=== PATIENT | female | born 1950 | race Caucasian/White ===

== ENCOUNTER → 2022-03-05 14:53 | Outpatient (BNVA) | payer MEDICARE, OTHER, SELFPAY | PROVIDERS: Family Provider Electrodiagnostic Medicine; Visit Provider Clinical Nurse Specialist Adult Health | DX: Z20.822 Contact with and (suspected) exposure to COVID-19 (principal); J06.9 Acute upper respiratory infection, unspecified | CPT/HCPCS: 87426 ==

== ENCOUNTER → 2023-02-21 12:45 | Outpatient (BNVA) | payer MEDICARE, OTHER, SELFPAY | PROVIDERS: Family Provider Electrodiagnostic Medicine; PCP Family Medicine; Visit Provider Family Medicine | DX: I10 Essential (primary) hypertension (principal); F32.A Depression, unspecified; Z13.6 Encounter for screening for cardiovascular disorders | CPT/HCPCS: 80053; 80061 ==

== ENCOUNTER → 2024-01-30 12:09 | Outpatient (BNVA) | payer MEDICARE, SELFPAY | PROVIDERS: Family Provider Electrodiagnostic Medicine; PCP Clinical Nurse Specialist Adult Health; Visit Provider Clinical Nurse Specialist Adult Health | DX: I10 Essential (primary) hypertension (principal); E55.9 Vitamin D deficiency, unspecified | CPT/HCPCS: 80053; 80061; 82306; 85025 ==

== ENCOUNTER → 2024-08-27 13:00 | Outpatient (BNVA) | payer MEDICARE, SELFPAY | PROVIDERS: Family Provider Electrodiagnostic Medicine; PCP Clinical Nurse Specialist Adult Health; Visit Provider Family Medicine | DX: R32 Unspecified urinary incontinence (principal); R53.81 Other malaise; R53.83 Other fatigue; E78.5 Hyperlipidemia, unspecified; Z13.220 Encounter for screening for lipoid disorders; E11.9 Type 2 diabetes mellitus without complications; Z51.81 Encounter for therapeutic drug level monitoring; E55.9 Vitamin D deficiency, unspecified | CPT/HCPCS: 80053; 80061; 82306; 83036; 84443; 85025 ==

== ENCOUNTER → 2025-01-12 15:35 | Outpatient (BNVA) | payer MEDICARE, OTHER, SELFPAY | PROVIDERS: Family Provider Electrodiagnostic Medicine; PCP Family Medicine; Visit Provider Family Medicine | DX: I10 Essential (primary) hypertension (principal); Z51.81 Encounter for therapeutic drug level monitoring; E11.9 Type 2 diabetes mellitus without complications; E55.9 Vitamin D deficiency, unspecified; R62.7 Adult failure to thrive; R05.9 Cough, unspecified; R63.4 Abnormal weight loss; R10.9 Unspecified abdominal pain; F32.A Depression, unspecified; F03.90 Unspecified dementia, unspecified severity, without behavioral disturbance, psychotic disturbance, mood disturbance, and anxiety | CPT/HCPCS: 80053; 82306; 83036; 83735; 85025 ==

== ENCOUNTER → 2025-05-28 12:01 | Outpatient (BNVA) | payer MEDICARE, OTHER, SELFPAY | PROVIDERS: Family Provider Electrodiagnostic Medicine; PCP Family Medicine; Visit Provider Family Medicine | DX: E11.9 Type 2 diabetes mellitus without complications (principal); Z51.81 Encounter for therapeutic drug level monitoring; E55.9 Vitamin D deficiency, unspecified | CPT/HCPCS: 80053; 82306; 83036; 85025 ==

== ENCOUNTER 2025-09-05 14:04 | Observation (INO) | payer MEDICARE, OTHER, SELFPAY ==
[2025-09-05] VITALS (33 sets, daily range): BP systolic 153–207; BP diastolic 73–100; PULSE 75–84; RESP 16; TEMP 37.3; O2SAT 90–98
--- OUTSIDE RECORDS SUMMARY | 2025-09-05 14:13 | XMS_ITS | Continuity of Care Document ---
Author Organization [place] - [facility], [place], [facility]) Address [address] [place] [address] Assessment Encounter Date Assessment Date Assessment LastModified by Organization Details LastModified Time 09/05/2025 09/05/2025 PT is going to ER for further evaluation [email or web address] Not available 09/05/2025 14:57:30 Plan of Treatment Reminders Order Date Submit Date Provider Last Modified By Organization Details Last Modified Time Details Appointments None record ed. Lab None record ed. Referral None record ed. Procedures None record ed. Surgeries None record ed. Imaging None record ed. Medication Orders None record ed. Patient TargetsNo targets recorded. Patient InstructionsNo instructions recorded. Reason for Referral None Reported. Medical Equipment None Reported. Allergies Allergen ID Allergen Name Allergen Category Reaction Reaction Severity Criticality Documentation Date Start Date Code Code System Note Provider Name and Address Organization Details Recorded Time 49638 sertralin e medicatio n Not available Not available Not available 09/05/20252023 37456 RxNorm Not Available alice - External Data Service - prod 14:50:48 Medications Name Sig Start Date Stop Date Status Note LastModified by Organization Details LastModified Time atorvastat in 40 mg tablet TAKE 1 TABLET BY MOUTH EVERY DAY IN THE MORNING FOR CHOLESTE ROL. active Not Available Not Available No t Available metoprolol succinate ER 100 mg tablet,ext ended release 24 hr TAKE 1 TABLET BY MOUTH DAILY FOR HEART RATE & BLOOD PRESSURE . active Not Available Not Available No t Available lisinopril 40 mg tablet TAKE 1 TABLET BY MOUTH EVERY DAY active Not Available Not Available No t Available lisinopril daily 2021 active DM/sd; Recorded 07/29/2022 3:35PM by Thuy Rowland, Historical Summary; Refill Quantity: 0; Not Available Not Available Not Available metoprolol succinate daily 2022 active DM/sd Pt. must have appt. prior to additional refills; Recorded 09/13/2022 10:25AM by Thuy Rowland, Historical Summary; Refill Quantity: 0; Not Available Not Available Not Available amlodipine besylate (bulk) daily 2021 active DM/MG; 69835; Recorded 12/27/2021 11:51AM by Brielle Cohen (Authorize d through Robby Tracey DO), Annotation /Addendum; Refill Quantity: 0; Not Available Not Available Not Available Vitals None Recorded Social History None recorded. Functional Status None recorded. Mental Status None recorded. Family History Nothing Reported. Medical History No medical history recorded. Gynecological HistoryNo gynecological history recorded. Obstetrics History GPAL:G 0 P 0 0 0 0 Immunizations Vaccine Type Date Status Note Provider Nam e and Address Organization Details Recorded Time Pneumococcal conjugate PCV 13 6 completed Not Available [facility] 09/05/2025 14:50:19 Past Encounters Encounter ID Performer Location Encounter Start Date Encounter Closed Date Diagnosis/Indication Diagnosis SNOMED-CT Code Diagnosis ICD10 Code Diagnosis IMO Codes Diagnosis Note [id number] JULIANNA SAMS APRN [facility] ([facility]) [address] [place] [phone] 09/05/2025 14:50:03 09/05/2025 14:58:13 Health Concerns Section Related Observation LastModified by Organization Detai ls LastModified Time None Recorded Concern Status LastModified by Organization Details LastModified Time None Recorded Payers Encounter Date Sequence Insurance Name Policy Number Policy [place] Covered Member ID [place] Member ID Guarantor Name 09/05/2025 1 [employer]ger [id number] Su Unger OBGyn Episode No OBEpisode recorded.
--- OUTSIDE RECORDS SUMMARY | 2025-09-05 14:13 | XMS_ITS | Data Portability ---
Author Organization [facility] Address [address] [phone] Assessment Encounter Date Assessment Date Assessment LastModified by Organization Details LastModified Time 09/05/2025 09/05/2025 PT is going to ER for further evaluation [email or web address] Not available 09/05/2025 14:57:30 Plan of Treatment [...] Name and Address Organization Details Recorded Time 65112 sertralin e medicatio n Not available Not available Not available 09/05/20252023 64681 RxNorm Not Available alice - External Data [...] amlodipine besylate (bulk) daily 2021 active DM/MG; 95331; Recorded 12/27/2021 11:51AM by Brielle Cohen (Authorize [...] conjugate PCV 13 6 completed Not Available [facility] 09/05/2025 14:50:19 Past Encounters Encounter ID Performer Location Encounter Start Date Encounter Closed Date Diagnosis/Indication Diagnosis SNOMED-CT Code Diagnosis ICD10 Code Diagnosis IMO Codes Diagnosis Note [id number] JULIANNA SAMS APRN [facility] ([facility]) [address] [place] [phone] 09/05/2025 14:50:03 09/05/2025 14:58:13 Health Concerns Section Related Observation LastModified by Organization Detai ls LastModified Time None Recorded Concern Status LastModified by Organization Details LastModified Time None Recorded Advance Directives Directive None Recorded Payers Insurance Date Sequence Insurance Name Policy Number Policy [place] Covered Member ID [place] Member ID Guarantor Name 09/05/2025 1 [employer] [id number] Su Unger OBGyn Episode No OBEpisode recorded.
--- NOTE | 2025-09-05 15:10 | XRR_ITS ---
PROCEDURE INFORMATION: Exam: XR Chest Exam date and time: 09/05/2025 3:48 PM Age: 75 years old Clinical indication: Injury or trauma; Fall; Blunt trauma (contusions or hematomas) TECHNIQUE: Imaging protocol: Radiologic exam of the chest. 2 image(s) are submitted. Views: 1 view. COMPARISON: CT cervical spin wo con* [id number] 09/05/2025 3:33 PM FINDINGS: Lungs: Unremarkable. No consolidation. Pleural spaces: Unremarkable. No pleural effusion. No pneumothorax. Heart/Mediastinum: Unremarkable. No cardiomegaly. Bones/joints: Unremarkable. Other findings: None XR/XR chest 1V portable [id number] IMPRESSION: No acute findings.
--- NOTE | 2025-09-05 15:10 | XRR_ITS ---
PROCEDURE INFORMATION: Exam: XR Right Elbow Exam date and time: 09/05/2025 3:48 PM Age: 75 years old Clinical indication: Injury or trauma; Fall; Blunt trauma (contusions or hematomas); Elbow; Right; Additional info: Fall/injury/edema TECHNIQUE: Imaging protocol: Radiologic exam of the right elbow. 1 image(s) are submitted. Views: 3 or more views. COMPARISON: CR (UP EX, ) 09/05/2025 3:48 PM FINDINGS: Bones/joints: See Soft tissues finding. Soft tissues: Significant soft tissue swelling surrounding the right elbow region. Indistinct fracture line in the intercondylar region is noted, consistent with supracondylar fracture with up to 14 mm bony displacement, best seen on lateral x-ray. Follow-up CT study is recommended for accurate evaluation. Large elbow joint effusion. Osteopenia. XR/XR elbow RT min 3V* [id number] IMPRESSION: Significant soft tissue swelling surrounding the right elbow region. Indistinct fracture line in the intercondylar region is noted, consistent with supracondylar fracture with up to 14 mm bony displacement, best seen on lateral x-ray. Follow-up CT study is recommended for accurate evaluation. Large elbow joint effusion. Osteopenia.
--- NOTE | 2025-09-05 15:10 | CTR_ITS ---
PROCEDURE INFORMATION: Exam: CT Cervical Spine Without Contrast Exam date and time: 09/05/2025 3:33 PM Age: 75 years old Clinical indication: Injury or trauma; Fall; Blunt trauma TECHNIQUE: Imaging protocol: Computed tomography of the cervical spine without contrast. Radiation optimization: All CT scans at this facility use at least one of these dose optimization techniques: automated exposure control; mA and/or kV adjustment per patient size (includes targeted exams where dose is matched to clinical indication); or iterative reconstruction. COMPARISON: CT head wo con* [id number] 09/05/2025 3:33 PM RADIATION DOSE METRICS: Total DLP (mGy-cm): 104.6 FINDINGS: Bones: No cervical fracture or facet subluxation. Mastoid air cells: Small fluid in bilateral mastoid air cells. Lungs: Lung apices are normal. Soft tissues: Unremarkable. CT/CT cervical spin wo con* [id number] IMPRESSION: No fracture.
--- NOTE | 2025-09-05 15:10 | XRR_ITS ---
PROCEDURE INFORMATION: Exam: XR Right Forearm Exam date and time: 09/05/2025 3:48 PM Age: 75 years old Clinical indication: Injury or trauma; Fall; Blunt trauma (contusions or hematomas); Arm, lower; Right; Additional info: Fall/injury TECHNIQUE: Imaging protocol: Radiologic exam of the right forearm. 3 image(s) are submitted. Views: 2 views. COMPARISON: CR (UP EXM, ) 09/05/2025 3:48 PM FINDINGS: Bones/joints: Transverse supracondylar fracture of the right humerus with extensive adjacent soft tissue swelling and some degree of bony impaction is noted. Osteopenia. The radius and ulnar are unremarkable. Soft tissues: See Bones/joints finding. XR/XR forearm RT 2V [id number] IMPRESSION: Transverse supracondylar fracture of the right humerus with extensive adjacent soft tissue swelling and some degree of bony impaction is noted. Osteopenia. The radius and ulnar are unremarkable.
--- NOTE | 2025-09-05 15:10 | CTR_ITS ---
PROCEDURE INFORMATION: Exam: CT Head Without Contrast Exam date and time: 09/05/2025 3:33 PM Age: 75 years old Clinical indication: Injury or trauma; Fall; Blunt trauma (contusions or hematomas) TECHNIQUE: Imaging protocol: Computed tomography of the head without contrast. Radiation optimization: All CT scans at this facility use at least one of these dose optimization techniques: automated exposure control; mA and/or kV adjustment per patient size (includes targeted exams where dose is matched to clinical indication); or iterative reconstruction. COMPARISON: CT cervical spin wo con* [id number] 09/05/2025 3:33 PM RADIATION DOSE METRICS: Total DLP (mGy-cm): 1057.4 FINDINGS: Brain: Cortical atrophy is present. Indeterminate 3 mm hyperdensity at the right centrum semiovale. No midline shift. Periventricular hypodensities are nonspecific and likely representing moderate small vessel ischemic changes. Cerebral ventricles: No ventriculomegaly. Paranasal sinuses: Visualized sinuses are unremarkable. No fluid levels. Mastoid air cells: Visualized mastoid air cells are well aerated. Bones: Unremarkable. No acute fracture. Soft tissues: Unremarkable. Other findings: Intracranial atherosclerotic changes. CT/CT head wo con* [id number] IMPRESSION: 1. Indeterminate 3 mm hyperdensity at the right centrum semiovale. This could represent a small calcification versus small intraparenchymal hematoma given the history of trauma. Short-term imaging follow-up for stability is advised. 2. Cortical atrophy is present. 3. Likely moderate small-vessel ischemic changes. 4. Intracranial atherosclerotic changes.
--- NOTE | 2025-09-05 15:11 | ED_ITS ---
Documented by User: YOU Cm 09/05/25 18:00 HPI - Fall 2 General: Chief Complaint: ER Hold Stated Complaint: fell, elbow area right arm, chin gash Time Seen by Provider: 09/05/25 14:54 Source: patient and family Mode of arrival: ambulatory Limitations: no limitations History of Present Illness: Patient is a 75-year-old female presents to ED today along with family for evaluation following a fall. Family states she has dementia and does have family that lives with her but they do not stay with her 01/04. They reported at breakfast/morning she seemed normal but when they returned later for lunch, it was obvious she had fallen. She is missing a portion of her artificial front tooth. She has a chin abrasion/laceration. She complained of pain to the right elbow and there was obvious swelling here. Patient does not remember following secondary to her dementia. Her only complaint to me is her right elbow. She is not on anticoagulation. Unknown whether she struck her head. MD complaint: fall Onset (ago): hour(s) Fall witnessed: no Place fall occurred: home Loss of consciousness: Unsure Prolonged down time: unclear Symptoms prior to fall: other (unknown) Location of injury: face and mouth Location of injury - extremities: Right: elbow Associated symptoms-after fall: Reports no associated symptoms; Denies abdominal pain, chest pain, difficulty walking, headache(s), hematuria, lightheadedness or neck pain Related Data Previous Rx's ?Medication ?Instructions ?Recorded loratadine 10 mg tablet 10 mg PO DAILY 07/11/22 allergies/congestion #30 tabs clotrimazole 1 % topical cream 1 applic topical BID #3 0 grams 08/27/24 (Athlete's Foot (clotrimazole)) amlodipine 10 mg tablet See Rx Instructions .Route 0 01/12/25 .COMPLEX #90 tabs citalopram 20 mg tablet 20 mg PO DAILY #90 tabs 05/0 03/03 donepezil 10 mg tablet 10 mg PO DAILY #90 tabs 05/0 03/03 lisinopril 10 mg tablet 10 mg PO DAILY #90 tabs 05/0 25 fluticasone propionate 50 1 spray intranasal BID #30 m L 03/30/25 mcg/actuation nasal spray,suspension (Allergy Relief (fluticasone)) quetiapine 25 mg tablet 25 mg PO DAILY #30 tabs 08/09 01/31 Allergies Allergy/AdvReac Type Severity Reaction Status Date / Time sertraline (From Zoloft) Allergy Unknown Unknown Verified 09/05/25 14:24 Review of Systems 2 Eyes: Denies: change in vision, blurry vision, photophobia, eye discharge, floaters or seeing flashes ENMT: Denies: throat pain, odynophagia, ear or mastoid pain, ear discharge, nasal discharge, epistaxis or sinus pain Card: Denies: chest pain, palpitations, lightheadedness, syncope or pre- syncope Resp: Denies: dyspnea or pain on inspiration GI: Denies: abdominal pain : Denies: flank pain or hematuria Musc: Reports: joint pain (R elbow) and joint swelling (R elbow); Denies: neck pain, back pain or extremity pain Neuro: Reports: other (chronic dementia-at baseline per family); Denies: headache(s), numbness in extremities, weakness in extremities, sensory changes, difficulty walking or dizziness PFSH ED 2 PFSH: Medical History Hyponatremia 2015 hospitalized for hyponatremia Chronic kidney disease Tobacco dependence due to cigarettes Generalized anxiety disorder Seasonal allergies Allergies Hypertension Depression Surgical History Hx of inguinal hernia repair 04/2016 due to incarceration Family History Other Alcohol dependence CAD (coronary artery disease) Cirrhosis Diabetes Lung cancer Pulmonary embolism Denies family history of Clotting disorder Anesthesia complication Bleeding disorder Stroke Social History Smoking and tobacco/nicotine status: never used tobacco/nicotine Alcohol intake: current Alcohol intake frequency: holidays/special occasions only Substance/Drug Use: never Lives independently: Yes Household members: none Marital status: / Current occupational status: retired Pets and animals: Yes Pets & animals: dog(s) Physical Exam 2 Const: COMMON NORMALS: no acute distress, average body habitus, patient oriented x3, healthy appearing, alert and well nourished GENERAL APPEARANCE: cooperative OTHER: baseline dementia HENMT: COMMON NORMALS: normocephalic, atraumatic and Normal external nose present HEAD & SCALP: normocephalic and atraumatic FACE & SINUS: other (mild chin abrasion) NOSE: Normal external nose present MOUTH: Normal oral and palatal mucosa present, lip normal, tongue normal and Normal salivary glands and ducts present TEETH & GINGIVA: Yes other (chipped R front tooth- artificial tooth/bridge) THROAT: posterior oropharynx normal and tonsils normal Eye: GENERAL EYE: appearance normal, both eyes and all related structures Neck/C-Spine: COMMON NORMALS: full ROM, no lymphadenopathy, supple and no meningeal signs CERVICAL SPINE: No Cervical spine tenderness and No Paracervical muscle tenderness Chest: COMMONS NORMALS: normal inspection of the chest and normal palpation of entire chest wall Resp: COMMON NORMALS: normal respiratory effort and clear to auscultation bilaterally AUSCULTATION: clear to auscultation bilaterally Cardio: COMMON NORMALS: regular rate and regular rhythm RATE: regular rate RHYTHM: regular rhythm GI: COMMON NORMALS: Normal to inspection, nondistended, normoactive bowel sounds present, Soft to palpation, non-tender, No hepatosplenomegaly present and no masses PALPATION: Yes Soft to palpation and Yes No hepatosplenomegaly present : COMMON NORMALS: Yes no CVA tenderness BLADDER/KIDNEY EXAM: Yes no CVA tenderness Back/Pelvis: COMMON NORMALS: no CVA tenderness and thoracic and lumbar spine normal to inspection Extremity: GENERAL: Yes normal exam except as noted RIGHT UPPER EXTREMITY: Yes elbow joint (severe pain/edema to R elbow) Right elbow: Yes ROM (limited due to pain) and Yes neurovascular exam (normal) Neuro: COMMON NORMALS: patient oriented x3, moves all extremities, no focal motor deficits, no sensory deficits noted and gait normal S ENSORIUM/ORIENTATION: Yes alert MENINGEAL SIGNS: Yes no meningeal signs Skin: COMMON NORMALS: no rashes or lesions noted GENERAL SKIN EXAM: no rashes or lesions noted TRAUMA: abrasion (chin) Course 2 Consultations: Consultation #1: Dr. Castaneda-reviewed elbow XR films-recommending posterior elbow splint and will follow up in office Consultation #2: Dr. Flores-[facility] neurosurgery-recommending either admit here or transfer-plan would be to repeat scan in 8 hours-if no change she can be discharged Consultation #3: Dr. Greco-accepts admission obs Vital Signs: Vital signs: Vital Signs Temperature 97.6 F 09/06/25 02:22 Pulse Rate 61 09/06/25 02:22 Respiratory Rate 16 09/06/25 02:22 Blood Pressure 179/81 09/06/25 02:22 Pulse Oximetry 95 09/06/25 02:22 Oxygen Delivery Me thod Room Air 09/06/25 02:22 MDM - Fall Medical Decision Making Patient 75-year-old female here with dementia following a fall that occurred at some point this morning. Patient does not recall the fall. Her only complaint upon arrival was right elbow pain. She does have a supracondylar elbow fracture. This was discussed with Dr. Castaneda who reviewed films. Plan will be for a posterior elbow splint and he will follow-up in office. CT head/cervical spine were obtained and on her head CT the radiologist had commented on an indeterminate 3 mm hyperdensity at her right centrum semiovale that could represent calcification versus a small intraparenchymal hematoma given her history of trauma. This was discussed with Dr. Flores, neurosurgery through [facility]. He did not feel this would amount to much but did recommend repeat CT scan in 8 hours. Patient will be admitted to obs here with plan to repeat scan. Patient's blood work overall is unremarkable. Mild hypokalemia at 3.0. Her magnesium is normal. UA does look suspicious for infection. She was given IV Rocephin. Case discussed with Dr. tOt who agrees with care plan here in the emergency department. Medical Records I reviewed the patient's medical records. Lab Data I reviewed the patient's lab results. 09/06/25 04:42 09/06/25 04:42 Radiology Impressions Cervical Spine CT 09/05/25 15:10 IMPRESSION: No fracture. Chest X-Ray 09/05/25 15:10 IMPRESSION: No acute findings. Elbow X-Ray 09/05/25 15:10 IMPRESSION: Significant soft tissue swelling surrounding the right elbow region. Indistinct fracture line in the intercondylar region is noted, consistent with supracondylar fracture with up to 14 mm bony displacement, best seen on lateral x-ray. Follow-up CT study is recommended for accurate evaluation. Large elbow joint effusion. Osteopenia. Forearm X-Ray 09/05/25 15:10 IMPRESSION: Transverse supracondylar fracture of the right humerus with extensive adjacent soft tissue swelling and some degree of bony impaction is noted. Osteopenia. The radius and ulnar are unremarkable. Head CT 09/05/25 15:10 IMPRESSION: 1. Indeterminate 3 mm hyperdensity at the right centrum semiovale. This could represent a small calcification versus small intraparenchymal hematoma given the history of trauma. Short-term imaging follow-up for stability is advised. 2. Cortical atrophy is present. 3. Likely moderate small-vessel ischemic changes. 4. Intracranial atherosclerotic changes. ADDENDUM: 09/05/25 1637 COMMENT: THIS REPORT CONTAINS FINDINGS THAT MAY BE CRITICAL TO PATIENT CARE. The exam findings were verbally communicated by me to RAAD MYERS via telephone conference at 4:35 PM COUNTERINTELLIGENCE SPECIALIST on 09/05/2025. The findings were acknowledged and understood. Elbow CT 09/05/25 17:18 IMPRESSION: Supracondylar oblique transverse fracture is noted with at least 3 small, 1 x 4 mm bone chips/fragments within the fracture line/joint space seen on image number 19 series number 8 and image number 30/8. There is 7 mm bony impaction in the radial aspect of the fracture line. There is up to 1.3 cm bony displacement in the ulnar aspect of the fracture line with the distal fragment displaced anteriorly seen on image number 13/8. There is extensive elbow joint effusion and extensive soft tissue edema/swelling of the adjacent muscle and subcutaneous soft tissue. Laboratory Results WBC 13.19 10^3/uL (3.29-11.43) H 09/05/25 16:05 RBC 3.92 10^6/uL (3.85-5.65) 09/05/25 16:05 Hgb 12.20 g/dL (11.27-16.99) 09/05/25 16:05 Hct 38.0 % (36-47) 09/05/25 16:05 MCV 96.9 fl (85-98) 09/05/25 16:05 MCH 31.1 pg (27-33) 09/05/25 16:05 MCHC 32.1 g/dL (30-55) 09/05/25 16:05 RDW 13.6 % (12.1-15.1) 09/05/25 16:05 Plt Count 237 10^3/cmm (157-399) 09/05/25 16:05 MPV 10.2 fL (7.4-10.4) 09/05/25 16:05 Neut % (Auto) 78.0 % 09/05/25 16:05 Lymph % (Auto) 15.5 % 09/05/25 16:05 Moca % (Auto) 5.8 % 09/05/25 16:05 Eos % (Auto) 0.2 % 09/05/25 16:05 Baso % (Auto) 0.2 % 09/05/25 16:05 Neut # (Auto) 10.27 10^3/uL (1.8-7.7) H 09/05/25 16:05 Lymph # (Auto) 2.1 10^3/uL (0.8-4.8) 09/05/25 16:05 Moca # (Auto) 0.8 10^3/uL (0.2-0.9) 09/05/25 16:05 Eos # (Auto) 0.0 10^3/uL (0.0-0.8) 09/05/25 16:05 Baso # (Auto) 0.0 10^3/uL (0.0-0.1) 09/05/25 16:05 Nucleated RBC % (auto) 0 % 09/05/25 16:05 Nucleated RBCs # 0.0 /100WBC 09/05/25 16:05 Sodium 136 mmol/L (136-145) 09/05/25 16:05 Potassium 3.0 mmol/L (3.5-5.1) L 09/05/25 16:05 Chloride 99 mmol/L (98-107) 09/05/25 16:05 Carbon Dioxide 24 mmol/L (22-29) 09/05/25 16:05 Anion Gap 16.0 (5-19) 09/05/25 16:05 BUN 9 mg/dL (8-23) 09/05/25 16:05 Creatinine 1.2 mg/dL (0.5-0.9) H 09/05/25 16:05 GFR Calculation Not Reportable 09/05/25 16:05 Glucose 129 mg/dL (65-115) H 09/05/25 16:05 Calculated Osmolality 282 mOsm/kg (285-295) L 09/05/25 16:05 Calcium 9.0 mg/dL (8.5-10.5) 09/05/25 16:05 Magnesium 1.7 mg/dL (1.7-2.3) 09/05/25 16:05 Total Bilirubin 0.2 mg/dL (0.15-1.2) 09/05/25 16:05 AST 15 U/L (0-32) 09/05/25 16:05 ALT 11 U/L (0-33) 09/05/25 16:05 Alkaline Phosphatase 103 U/L (35-105) 09/05/25 16:05 Troponin T Baseline 19 ng/L (0-10) H 09/05/25 16:05 Troponin T 60 Minute 17.10 ng/L (0-10) H 09/05/25 17:23 Delta Troponin T -1.90 ABS# (0-10) L 09/05/25 17:23 Total Protein 5.8 g/dL (6.6-8.7) L 09/05/25 16:05 Albumin 3.5 g/dL (3.5-5.2) 09/05/25 16:05 Globulin 2.3 g/dL (1.3-4.6) 09/05/25 16:05 Urine Color Yellow (Yellow) 09/05/25 17:01 Urine Appearance Turbid (CLEAR) A 09/05/25 17:01 Urine pH 6.0 (5-7) 09/05/25 17:01 Ur Specific Wolcott 1.010 (1.005-1.030) 09/05/25 17:01 Urine Protein 2+ (Negative) A 09/05/25 17: Urine Glucose (UA) Negative (Normal) 09/05/25 17:01 Urine Ketones Negative (Negative) 09/05/25 17: Urine Blood 2+ (Negative) A 09/05/25 17: Urine Nitrate Negative (Negative) 09/05/25 17: Urine Bilirubin Negative (Negative) 09/05/25 17: Urine Urobilinogen 0.2 mg/dL (Negative) 09/05/25 17:01 Ur Leukocyte Esterase 3+ (Negative) A 09/05/25 17:01 Urine RBC 0-2 /hpf (0-2) 09/05/25 17:01 Urine WBC >100 /hpf (0-5) H 09/05/25 17:01 Ur Squamous Epith Cells 0-5 /hpf (0-5) 09/05/25 17:01 Amorphous Sediment Not Reportable 09/05/25 17:01 Urine Bacteria 4+ /hpf (NONE) H 09/05/25 17:01 Hyaline Casts 9.30 /lpf 09/05/25 17:01 All radiology interpretation(s) finalized by discharge Discharge Plan Discharge Patient Disposition: Placed in Observation Admit Provider: Kishore Greco Clinical Impression: Acute hypokalemia, Acute UTI Fall Qualifiers: Encounter type: initial encounter Qualified Code(s): W19.XXXA - Unspecified fall, initial encounter Closed supracondylar fracture of right elbow Qualifiers: Encounter type: initial encounter Qualified Code(s): S42.411A - Displaced simple supracondylar fracture without intercondylar fracture of right humerus, initial encounter for closed fracture Intraparenchymal hematoma of brain due to trauma Qualifiers: Encounter type: initial encounter Laterality: unspecified laterality Loss of consciousness presence/duration: unknown LOC status Qualified Code(s): S06.33AA - Contusion and laceration of cerebrum, unspecified, with loss of consciousness status unknown, initial encounter Coding Level of Care Code ED Pcat Instructor for Chg Fwd Documented by User: Laura Ott MD 09/06/25 06:08 HPI - Fall 2 General: Chief Complaint: ER Hold Stated Complaint: fell, elbow area right arm, chin gash Time Seen by Provider: 09/05/25 14:54 Related Data Previous Rx's ?Medication ?Instructions ?Recorded loratadine 10 mg tablet 10 mg PO DAILY 07/11/22 allergies/congestion #30 tabs clotrimazole 1 % topical cream 1 applic topical BID #3 0 grams 08/27/24 (Athlete's Foot (clotrimazole)) amlodipine 10 mg tablet See Rx Instructions .Route 0 01/12/25 .COMPLEX #90 tabs citalopram 20 mg tablet 20 mg PO DAILY #90 tabs 05/0 03/03 donepezil 10 mg tablet 10 mg PO DAILY #90 tabs 05/0 25 lisinopril 10 mg tablet 10 mg PO DAILY #90 tabs 050 03/03 fluticasone propionate 50 1 spray intranasal BID #30 m L 03/30/25 mcg/actuation nasal spray,suspension (Allergy Relief (fluticasone)) quetiapine 25 mg tablet 25 mg PO DAILY #30 tabs 08/09 01/31 Allergies Allergy/AdvReac Type Severity Reaction Status Date / Time sertraline (From Zoloft) Allergy Unknown Unknown Verified 09/05/25 14:24 PFSH ED 2 PFSH: Medical History Hyponatremia 2015 hospitalized for hyponatremia Chronic kidney disease Tobacco dependence due to cigarettes Generalized anxiety disorder Seasonal allergies Allergies Hypertension Depression Surgical History Hx of inguinal hernia repair 04/2016 due to incarceration Family History Other Alcohol dependence CAD (coronary artery disease) Cirrhosis Diabetes Lung cancer Pulmonary embolism Denies family history of Clotting disorder Anesthesia complication Bleeding disorder Stroke Social History Smoking and tobacco/nicotine status: never used tobacco/nicotine Alcohol intake: current Alcohol intake frequency: holidays/special occasions only Substance/Drug Use: never Lives independently: Yes Household members: none Marital status: / Current occupational status: retired Pets and animals: Yes Pets & animals: dog(s) Course 2 Vital Signs: Vital signs: Vital Signs Temperature 97.6 F 09/06/25 02:22 Pulse Rate 61 09/06/25 02:22 Respiratory Rate 16 09/06/25 02:22 Blood Pressure 179/81 09/06/25 02:22 Pulse Oximetry 95 09/06/25 02:22 Oxygen Delivery Me thod Room Air 09/06/25 02:22 MDM - Fall Medical Decision Making Patient 75-year-old female here with dementia following a fall that occurred at some point this morning. Patient does not recall the fall. Her only complaint upon arrival was right elbow pain. She does have a supracondylar elbow fracture. This was discussed with Dr. Castaneda who reviewed films. Plan will be for a posterior elbow splint and he will follow-up in office. CT head/cervical spine were obtained and on her head CT the radiologist had commented on an indeterminate 3 mm hyperdensity at her right centrum semiovale that could represent calcification versus a small intraparenchymal hematoma given her history of trauma. This was discussed with Dr. Flores, neurosurgery through [facility]. He did not feel this would amount to much but did recommend repeat CT scan in 8 hours. Patient will be admitted to obs here with plan to repeat scan. Patient's blood work overall is unremarkable. Mild hypokalemia at 3.0. Her magnesium is normal. UA does look suspicious for infection. She was given IV Rocephin. Case discussed with Dr. Ott who agrees with care plan here in the emergency department. Saw patient above midlevel did review films and labs as well with her we will admit at this time Lab Data 09/06/25 04:42 09/06/25 04:42 Radiology Impressions Cervical Spine CT 09/05/25 15:10 IMPRESSION: No fracture. Chest X-Ray 09/05/25 15:10 IMPRESSION: No acute findings. Elbow X-Ray 09/05/25 15:10 IMPRESSION: Significant soft tissue swelling surrounding the right elbow region. Indistinct fracture line in the intercondylar region is noted, consistent with supracondylar fracture with up to 14 mm bony displacement, best seen on lateral x-ray. Follow-up CT study is recommended for accurate evaluation. Large elbow joint effusion. Osteopenia. Forearm X-Ray 09/05/25 15:10 IMPRESSION: Transverse supracondylar fracture of the right humerus with extensive adjacent soft tissue swelling and some degree of bony impaction is noted. Osteopenia. The radius and ulnar are unremarkable. Head CT 09/05/25 15:10 IMPRESSION: 1. Indeterminate 3 mm hyperdensity at the right centrum semiovale. This could represent a small calcification versus small intraparenchymal hematoma given the history of trauma. Short-term imaging follow-up for stability is advised. 2. Cortical atrophy is present. 3. Likely moderate small-vessel ischemic changes. 4. Intracranial atherosclerotic changes. ADDENDUM: 09/05/25 3947 COMMENT: THIS REPORT CONTAINS FINDINGS THAT MAY BE CRITICAL TO PATIENT CARE. The exam findings were verbally communicated by me to RAAD MYERS via telephone conference at 4:35 PM COUNTERINTELLIGENCE SPECIALIST on 09/05/2025. The findings were acknowledged and understood. Elbow CT 09/05/25 17:18 IMPRESSION: Supracondylar oblique transverse fracture is noted with at least 3 small, 1 x 4 mm bone chips/fragments within the fracture line/joint space seen on image number 19 series number 8 and image number 30/8. There is 7 mm bony impaction in the radial aspect of the fracture line. There is up to 1.3 cm bony displacement in the ulnar aspect of the fracture line with the distal fragment displaced anteriorly seen on image number 13/8. There is extensive elbow joint effusion and extensive soft tissue edema/swelling of the adjacent muscle and subcutaneous soft tissue. Laboratory Results WBC 13.19 10^3/uL (3.29-11.43) H 09/05/25 16:05 RBC 3.92 10^6/uL (3.85-5.65) 09/05/25 16:05 Hgb 12.20 g/dL (11.27-16.99) 09/05/25 16:05 Hct 38.0 % (36-47) 09/05/25 16:05 MCV 96.9 fl (85-98) 09/05/25 16:05 MCH 31.1 pg (27-33) 09/05/25 16:05 MCHC 32.1 g/dL (30-55) 09/05/25 16:05 RDW 13.6 % (12.1-15.1) 09/05/25 16:05 Plt Count 237 10^3/cmm (157-399) 09/05/25 16:05 MPV 10.2 fL (7.4-10.4) 09/05/25 16:05 Neut % (Auto) 78.0 % 09/05/25 16:05 Lymph % (Auto) 15.5 % 09/05/25 16:05 Moca % (Auto) 5.8 % 09/05/25 16:05 Eos % (Auto) 0.2 % 09/05/25 16:05 Baso % (Auto) 0.2 % 09/05/25 16:05 Neut # (Auto) 10.27 10^3/uL (1.8-7.7) H 09/05/25 16:05 Lymph # (Auto) 2.1 10^3/uL (0.8-4.8) 09/05/25 16:05 Moca # (Auto) 0.8 10^3/uL (0.2-0.9) 09/05/25 16:05 Eos # (Auto) 0.0 10^3/uL (0.0-0.8) 09/05/25 16:05 Baso # (Auto) 0.0 10^3/uL (0.0-0.1) 09/05/25 16:05 Nucleated RBC % (auto) 0 % 09/05/25 16:05 Nucleated RBCs # 0.0 /100WBC 09/05/25 16:05 Sodium 136 mmol/L (136-145) 09/05/25 16:05 Potassium 3.0 mmol/L (3.5-5.1) L 09/05/25 16:05 Chloride 99 mmol/L (98-107) 09/05/25 16:05 Carbon Dioxide 24 mmol/L (22-29) 09/05/25 16:05 Anion Gap 16.0 (5-19) 09/05/25 16:05 BUN 9 mg/dL (8-23) 09/05/25 16:05 Creatinine 1.2 mg/dL (0.5-0.9) H 09/05/25 16:05 GFR Calculation Not Reportable 09/05/25 16:05 Glucose 129 mg/dL (65-115) H 09/05/25 16:05 Calculated Osmolality 282 mOsm/kg (285-295) L 09/05/25 16:05 Calcium 9.0 mg/dL (8.5-10.5) 09/05/25 16:05 Magnesium 1.7 mg/dL (1.7-2.3) 09/05/25 16:05 Total Bilirubin 0.2 mg/dL (0.15-1.2) 09/05/25 16:05 AST 15 U/L (0-32) 09/05/25 16:05 ALT 11 U/L (0-33) 09/05/25 16:05 Alkaline Phosphatase 103 U/L (35-105) 09/05/25 16:05 Troponin T Baseline 19 ng/L (0-10) H 09/05/25 16:05 Troponin T 60 Minute 17.10 ng/L (0-10) H 09/05/25 17:23 Delta Troponin T -1.90 ABS# (0-10) L 09/05/25 17:23 Total Protein 5.8 g/dL (6.6-8.7) L 09/05/25 16:05 Albumin 3.5 g/dL (3.5-5.2) 09/05/25 16:05 Globulin 2.3 g/dL (1.3-4.6) 09/05/25 16:05 Urine Color Yellow (Yellow) 09/05/25 17:01 Urine Appearance Turbid (CLEAR) A 09/05/25 17:01 Urine pH 6.0 (5-7) 09/05/25 17:01 Ur Specific [place] 1.010 (1.005-1.030) 09/05/25 17:01 Urine Protein 2+ (Negative) A 09/05/25 17:01 Urine Glucose (UA) Negative (Normal) 09/05/25 17:01 Urine Ketones Negative (Negative) 09/05/25 17:01 Urine Blood 2+ (Negative) A 09/05/25 17: Urine Nitrate Negative (Negative) 09/05/25 17:01 Urine Bilirubin Negative (Negative) 09/05/25 17:01 Urine Urobilinogen 0.2 mg/dL (Negative) 09/05/25 17:01 Ur Leukocyte Esterase 3+ (Negative) A 09/05/25 17:01 Urine RBC 0-2 /hpf (0-2) 09/05/25 17:01 Urine WBC >100 /hpf (0-5) H 09/05/25 17:01 Ur Squamous Epith Cells 0-5 /hpf (0-5) 09/05/25 17:01 Amorphous Sediment Not Reportable 09/05/25 17:01 Urine Bacteria 4+ /hpf (NONE) H 09/05/25 17:01 Hyaline Casts 9.30 /lpf 09/05/25 17:01 Discharge Plan Discharge Patient Disposition: Placed in Observation Admit Provider: Kishore Greco Clinical Impression: Acute hypokalemia, Acute UTI Fall Qualifiers: Encounter type: initial encounter Qualified Code(s): W19.XXXA - Unspecified fall, initial encounter Closed supracondylar fracture of right elbow Qualifiers: Encounter type: initial encounter Qualified Code(s): S42.411A - Displaced simple supracondylar fracture without intercondylar fracture of right humerus, initial encounter for closed fracture Intraparenchymal hematoma of brain due to trauma Qualifiers: Encounter type: initial encounter Laterality: unspecified laterality Loss of consciousness presence/duration: unknown LOC status Qualified Code(s): S06.33AA - Contusion and laceration of cerebrum, unspecified, with loss of consciousness status unknown, initial encounter Coding Level of Care Code ED Pcat Instructor for Daivd Santacruz
--- NOTE | 2025-09-05 16:16 | ECG_ITS ---
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: : 1950 Requested By: Heaven Rosales Order Number: [id number] Reading MD: ADÁN HINTON Measurements Intervals Lester Rate: 75 P: 59 NC: 198 QRS: 61 QRSD: 73 T: 69 QT: 333 QTc: 372 Interpretive Statements SINUS RHYTHM WITH FREQUENT SUPRAVENTRICULAR PREMATURE COMPLEXES MINIMAL VOLTAGE CRITERIA FOR LVH, CONSIDER NORMAL VARIANT [MEETS CRITERIA IN ONE OF: R(aVL), S(V1), R(V5), R(V5/V6)+S(V1)] SEPTAL MYOCARDIAL INFARCTION , PROBABLY OLD [40+ ms Q WAVE IN V1/V2] Compared to ECG 08/12/2016 22:10:31 ST (T wave) deviation no longer present Myocardial infarct finding still present Electronically Signed On 09-05-2025 22:51:07 DISK RECOATER by ADÁN HINTON [email or web address]
[2025-09-05 16:20] LABS: Hematocrit 38.0 % (36-47); Hemoglobin 12.20 g/dL (11.27-16.99); Mean Corpuscular HGB Conc 32.1 g/dL (30-55); Mean Corpuscular Hemoglobin 31.1 pg (27-33); Mean Corpuscular Volume 96.9 fl (85-98); Nucleated Red Blood Cells % 0 %; Platelet Count 237 10^3/cmm (157-399); Red Blood Count 3.92 10^6/uL (3.85-5.65); White Blood Count 13.19 10^3/uL (3.29-11.43)
[2025-09-05 16:43] LABS: Troponin(5th) Baseline 19 ng/L (0-10)
[2025-09-05 17:02] LABS: Alanine Aminotransferase 11 U/L (0-33); Albumin Level 3.5 g/dL (3.5-5.2); Alkaline Phosphatase 103 U/L (35-105); Anion Gap 16.0 (5-19); Aspartate Amino Transferase 15 U/L (0-32); Blood Urea Nitrogen 9 mg/dL (8-23); Calcium 9.0 mg/dL (8.5-10.5); Carbon Dioxide 24 mmol/L (22-29); Chloride 99 mmol/L (98-107); Globulin 2.3 g/dL (1.3-4.6); Glucose 129 mg/dL (65-115); Osmolality Calculated 282 mOsm/kg (285-295); Potassium 3.0 mmol/L (3.5-5.1); Sodium 136 mmol/L (136-145); Total Protein 5.8 g/dL (6.6-8.7)
[2025-09-05 17:18] LABS: Glucose Urine UA Negative (Normal); Nitrate Urine Negative (Negative); Specific Gravity, Urine 1.010 (1.005-1.030)
--- NOTE | 2025-09-05 17:18 | CTR_ITS ---
PROCEDURE INFORMATION: Exam: CT Right Upper Extremity Without Contrast, Elbow Exam date and time: 09/05/2025 5:34 PM Age: 75 years old Clinical indication: Injury or trauma; Blunt trauma (contusions or hematomas); Right; Ground level fall with RT elbow fracture. CT recommended for further eval. ; Additional info: Injury/trauma; FX on XR TECHNIQUE: Imaging protocol: Computed tomography of the right upper extremity without contrast. Exam focused on the elbow. 361 image(s) are submitted. Radiation optimization: All CT scans at this facility use at least one of these dose optimization techniques: automated exposure control; mA and/or kV adjustment per patient size (includes targeted exams where dose is matched to clinical indication); or iterative reconstruction. COMPARISON: CR (UP EXM, ) 09/05/2025 3:48 PM RADIATION DOSE METRICS: Total DLP (mGy-cm): 288.68 FINDINGS: Bones/joints: Supracondylar oblique transverse fracture is noted with at least 3 small, 1 x 4 mm bone chips/fragments within the fracture line/joint space seen on image number 19 series number 8 and image number 30/8. There is 7 mm bony impaction in the radial aspect of the fracture line. There is up to 1.3 cm bony displacement in the ulnar aspect of the fracture line with the distal fragment displaced anteriorly seen on image number 13/8. There is extensive elbow joint effusion and extensive soft tissue edema/swelling of the adjacent muscle and subcutaneous soft tissue. Soft tissues: See Bones/joints finding. CT/CT elbow RT wo con* [id number] IMPRESSION: Supracondylar oblique transverse fracture is noted with at least 3 small, 1 x 4 mm bone chips/fragments within the fracture line/joint space seen on image number 19 series number 8 and image number 30/8. There is 7 mm bony impaction in the radial aspect of the fracture line. There is up to 1.3 cm bony displacement in the ulnar aspect of the fracture line with the distal fragment displaced anteriorly seen on image number 13/8. There is extensive elbow joint effusion and extensive soft tissue edema/swelling of the adjacent muscle and subcutaneous soft tissue.
[2025-09-05 17:23] LABS: Add Urine Microscopic? YES
[2025-09-05 17:25] LABS: Magnesium 1.7 mg/dL (1.7-2.3)
[2025-09-05 17:26] LABS: UA Slide Review UA Slide Review Perf
--- NOTE | 2025-09-05 17:51 | ECG_ITS ---
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: : 1950 Requested By: Heaven Rosales Order Number: [id number] Reading MD: ADÁN HINTON Measurements Intervals [place] Rate: 74 P: 59 MT: 213 QRS: 68 QRSD: 73 T: 71 QT: 316 QTc: 353 Interpretive Statements SINUS RHYTHM WITH FIRST DEGREE AV BLOCK WITH OCCASIONAL SUPRAVENTRICULAR PREMATURE COMPLEXES NONSPECIFIC T-WAVE ABNORMALITY Compared to ECG 09/05/2025 16:16:39 First degree AV block now present T-wave abnormality now present Myocardial infarct finding no longer present Electronically Signed On 09-05-2025 23:17:19 FEED AND FARM MANAGEMENT ADVISER by ADÁN HINTON [email or web address]
--- NOTE | 2025-09-05 18:15 | PC.NURSE ---
PT refused to change into hospital gown. Provided pt education that staff may need to remove her shirt at some point during her stay. Pt stated she did not care and wanted to keep her shirt on.
[2025-09-05] MEDS: cefTRIAXone 1,000 mg SDV 1000 MG IVP (18:55)
[2025-09-05] MEDS: potassium chloride oral liq 20 mEq/15 mL UDC 40 MEQ PO (18:56)
--- NOTE | 2025-09-05 21:10 | ECG_ITS ---
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1950 Requested By: Heaven Rosales Order Number: [id number] Reading MD: ADÁN HINTON Measurements Intervals [place] Rate: 76 P: 69 MN: 194 QRS: 68 QRSD: 78 T: 63 QT: 338 QTc: 381 Interpretive Statements SINUS RHYTHM WITH OCCASIONAL VENTRICULAR PREMATURE COMPLEXES WITH OCCASIONAL SUPRAVENTRICULAR PREMATURE COMPLEXES SEPTAL MYOCARDIAL INFARCTION , PROBABLY OLD [40+ ms Q WAVE IN V1/V2] Compared to ECG 09/05/2025 17:51:58 Ventricular premature complex(es) now present Myocardial infarct finding now present First degree AV block no longer present T-wave abnormality no longer present Electronically Signed On 09-05-2025 23:16:32 CLOTH MENDER by ADÁN HINTON [email or web address] [id number]
[2025-09-05 22:47] LABS: Troponin 5 6HR 20.77 ng/L (0-10); Troponin 5 6HR Delta 1.77 ng/L (0-12)
--- NOTE | 2025-09-05 23:55 | P.HP_ITS ---
Providers/Chief Complaint 2 Admitting Physician: Kishore Greco MD Primary Care Provider: Wade Mcneil MD Chief Complaint: fell, elbow area right arm, chin gash History of Present Illness Su Unger is a 75 year old female history of dementia, hypertension, CKD, pression, tobacco dependence, came to the ED today following unwitnessed fall at home. Per family patient was normal at breakfast but was later found to have fallen sometime during the morning. Exact mechanism unclear, patient does not recall any event due to baseline dementia. Uncertainty regarding head strike and unknown duration down. Noted to have a chin abrasion/laceration missing a portion of artificial front tooth, complaint of right elbow pain with swelling In the ED imaging revealed right supracondylar fracture of the distal humerus with associated soft tissue swelling and joint effusion. Head CT revealed an indeterminate 3 mm hyperdensity in the right centrum semiovale, which may represent calcification versus small traumatic intraparenchymal hemorrhage. Neurosurgery was consulted recommended repeat CT imaging in 8 hours for stability monitoring. Orthopedics reviewed elbow imaging and recommended posterior elbow splinting with outpatient follow-up Given the determinate head CT findings, dementia, unwitnessed fall, and need for repeat neuroimaging, the patient was admitted for observation. Medications/Allergies Home Medications ?Medication ?Instructions ?Recorded ?Confirmed ?Last Taken ?Type loratadine 10 mg tablet 10 mg PO DAILY 07/11/2208/10 Unknown Rx allergies/congestion #30 tabs clotrimazole 1 % topical cream 1 applic topical BID #3 0 grams 08/27/24 09/04/25 Unknown Rx (Athlete's Foot (clotrimazole)) amlodipine 10 mg tablet See Rx Instructions .Route 0 01/12/25 09/04/25 Unknown Rx .COMPLEX #90 tabs citalopram 20 mg tablet 20 mg PO DAILY #90 tabs 05/0 03/0309/04/25 Unknown Rx donepezil 10 mg tablet 10 mg PO DAILY #90 tabs 05/0 03/0309/04/25 Unknown Rx lisinopril 10 mg tablet 10 mg PO DAILY #90 tabs 05/0 03/0309/04/25 Unknown Rx fluticasone propionate 50 1 spray intranasal BID #30 m L 03/30/25 09/04/25 Unknown Rx mcg/actuation nasal spray,suspension (Allergy Relief (fluticasone)) quetiapine 25 mg tablet 25 mg PO DAILY #30 tabs 08/0908/23/25 Unknown Rx Allergies Allergy/AdvReac Type Severity Reaction Status Date / Time sertraline (From Zoloft) Allergy Unknown Unknown Verified 09/05/25 14:24 PFSH Acute 2 PFSH: Medical History (Updated 09/06/25 @ 02:25 by Kishore Greco MD) Hyponatremia 2015 hospitalized for hyponatremia Chronic kidney disease Tobacco dependence due to cigarettes Generalized anxiety disorder Seasonal allergies Allergies Hypertension Depression Surgical History Hx of inguinal hernia repair 04/2016 due to incarceration Family History Other Alcohol dependence CAD (coronary artery disease) Cirrhosis Diabetes Lung cancer Pulmonary embolism Denies family history of Clotting disorder Anesthesia complication Bleeding disorder Stroke Social History Smoking and tobacco/nicotine status: never used tobacco/nicotine Alcohol intake: current Alcohol intake frequency: holidays/special occasions only Substance/Drug Use: never Lives independently: Yes Household members: none Marital status: / Current occupational status: retired Pets and animals: Yes Pets & animals: dog(s) Vitals/I&O/Wt Last Vital Signs Temp 99.1 F 09/05/25 14:17 Pulse 75 09/05/25 14:45 Resp 16 09/05/25 14:45 BP 195/83 09/05/25 23:30 Pulse Ox 92 09/05/25 23:15 O2 Del Method Room Air 09/05/25 21:43 Weight last 48 hrs Weight 39.916 kg Physical Exam 2 Narrative: General: Elderly female, awake, confused but cooperative, no acute distress HEENT: Chin abrasion; missing portion of artificial tooth Neck: Supple, no midline tenderness Cardiovascular: Regular rate and rhythm Respiratory: Clear to auscultation bilaterally Abdomen: Soft, nontender, nondistended Extremities: Right elbow with swelling and tenderness posterior splint in place. Distal neurovascular status tact Neurologic: Awake, oriented to self only. No focal neurological deficits Skin: No additional acute lesions Data 09/05/25 16:05 09/05/25 16:05 CT Head: My impression: Indeterminate 3 mm hyperdensity in right centrum semiovale; calcification versus small intracranial hemorrhage CT cervical spine: No fracture Right elbow x-ray: Supracondylar distal humerus fracture with displacement Forearm x-ray: Confirms supracondylar fracture A&P Assessment and plan 1. Unwitnessed fall: Plan: Unwitnessed fall with possible head injury ? Indeterminant head CT finding ? Neurosurgery consulted Right supracondylar humerus fracture Dementia Possible urinary tract infection Hypokalemia Hypertension Tobacco use disorder Repeat CT head in 8 to 24 hours ? Neurochecks Fall precautions Orthopedics following, consulted with posterior elbow splint placed. Nonweightbearing right upper extremity. Outpatient Ortho follow-up ? Baseline cognitive impairment so continue donepezil. Minimize sedation medications, delirium precautions ? UA mildly suspicious, patient terms no symptoms, does not endorse dysuria. Presumptive UTI treated with IV Rocephin in ED. Follow urine culture results ? Replace potassium, recheck labs in a.m. ? Continue home antihypertensives Disposition: Observation admission, repeat CT per neurosurgery recommendation, anticipate discharge if imaging stable. PDMP PDMP Reviewed: Not Reviewed Attestations 2 Medical Necessity Statement*: Patient requires observation admission for management of unwitnessed fall with indeterminate head CT findings, requiring repeat neuroimaging, neurological monitoring and multidisciplinary evaluation in the setting of dementia. Diagnoses Unwitnessed fall R29.6
[2025-09-06] VITALS: BP 180/97; O2SAT 89
[2025-09-06 00:15] VITALS: BP 168/104; O2SAT 91
[2025-09-06 01:54] VITALS: BP 194/74; PULSE 69; O2SAT 95
[2025-09-06 02:22] VITALS: BP 179/81; PULSE 61; RESP 16; TEMP 36.4; O2SAT 95
[2025-09-06 04:59] LABS: Hematocrit 36.6 % (36-47); Hemoglobin 12.00 g/dL (11.27-16.99); Mean Corpuscular HGB Conc 32.8 g/dL (30-55); Mean Corpuscular Hemoglobin 31.7 pg (27-33); Mean Corpuscular Volume 96.6 fl (85-98); Nucleated Red Blood Cells % 0 %; Platelet Count 204 10^3/cmm (157-399); Red Blood Count 3.79 10^6/uL (3.85-5.65); White Blood Count 9.03 10^3/uL (3.29-11.43)
[2025-09-06 05:24] LABS: Alanine Aminotransferase 9 U/L (0-33); Albumin Level 3.1 g/dL (3.5-5.2); Alkaline Phosphatase 95 U/L (35-105); Anion Gap 13.3 (5-19); Aspartate Amino Transferase 12 U/L (0-32); Blood Urea Nitrogen 7 mg/dL (8-23); Calcium 8.6 mg/dL (8.5-10.5); Carbon Dioxide 27 mmol/L (22-29); Chloride 99 mmol/L (98-107); Globulin 2.4 g/dL (1.3-4.6); Glucose 165 mg/dL (65-115); Magnesium 1.6 mg/dL (1.7-2.3); Osmolality Calculated 284 mOsm/kg (285-295); Potassium 3.3 mmol/L (3.5-5.1); Sodium 136 mmol/L (136-145); Total Protein 5.5 g/dL (6.6-8.7)
[2025-09-06 07:22] VITALS: BP 157/73; PULSE 85; RESP 17; TEMP 36.6; O2SAT 98
--- NOTE | 2025-09-06 09:21 | PC.CHAP ---
Pastoral Care Encounter/Spiritual Assessment Type of Contact [] Declined home health travel ot visit [] Patient/Family/Request visit [] Outpatient visit [] Follow-up visit [] Physician referral [] Code/Alert [x] Routine visit [] Staff referral [] Actively dying [] Patient sleeping [] Family support [] [] Out of room [] Palliative care [] [] Receiving care in room [] Pre-surgical visit [] Trauma [] Long length of stay [] ICU visit [] Other: Relational/Emotional Strength [] Patient feels connected with others/family/visitors/staff [] Distress [] Loneliness/isolation [] Abandonment Spirituality of Patient [x] Person of [place] [] Attends Shinto of their [place] [x] Believes in Prayer [] Reads Bible or Yazdanism materials [] There are Spiritual issues to be addressed Glue Bone Crusher Interventions [x] Prayer [x] Active listening [] Non-anxious presence [] Spiritual/emotional support [] Crisis/trauma care [] Spiritual counseling [] Bereavement support [] Provided bereavement packet [x] Provided Bible/devotional materials [] Provided toy/stuffed animal, coloring book to patient or family member [] Provided Communion [] Anointing/[place] [] Salvation [x] Completed spiritual assessment [] Other: Impact on Illness or Injury [] Angry [] Fearful [] Anxious [] Often cries [] Exhaustion [] Unable to work [] Unable to attend congregation [] Unable to walk/stand [] Unable to read [] Unable to drive [] Unable to eat/drink [] Unable to sleep [] Unable to be with family [] Patient intubated [] Other: Summary Time spent with patient 10 min
--- NOTE | 2025-09-06 10:21 | CT_ITS ---
WS: [id number] CT HEAD TECHNIQUE: Noncontrast CT of the head obtained from the skullbase to the vertex. CLINICAL INFORMATION: f/u fall COMPARISON: 09/05/2025 DLP: 1041.[address] scans at [facility] use at least one of these dose optimization techniques: automated exposure control; mA and/or kV adjustment per patient size (includes targeted exams where dose is matched to clinical indication); or iterative reconstruction. FINDINGS: 3 mm punctate focus of increased attenuation in the RIGHT centrum semiovale is unchanged since yesterday. Recommend additional short interval follow-up to assess change Moderate small vessel changes with moderate parenchymal volume loss. Vascular calcification. Chronic appearing infarct RIGHT thalamus. Tiny small chronic lacunar infarct LEFT cerebellum Mild mucosal thickening in the mastoid tips. Trace fluid in the RIGHT sphenoid sinus. CT/CT head wo con* [id number] IMPRESSION: 1. Stable punctate focus of increased attenuation in the RIGHT centrum semiova le. This is indeterminate but unchanged. Recommend additional follow-up to ass ess change. 2. No other significant changes
[2025-09-06 11:24] VITALS: BP 119/59; PULSE 81; RESP 16; TEMP 36.5; O2SAT 95
--- NOTE | 2025-09-06 15:30 | PM.DCS ---
Discharge Providers Date of Admission: 09/05/25 17:47 Date of Discharge: September 06, 2025 Attending Provider at Admission: Kishore Greco MD Attending Provider at Discharge: Kihsore Greco MD Primary Care Provider: Wade Mcneil MD Diagnoses at Discharge Discharge Diagnosis 1. Unwitnessed fall: Reason for Visit Reason for Visit: fell, elbow area right arm, chin gash Brief History: Su Unger is a 75 year old female history of dementia, hypertension, CKD, pression, tobacco dependence, came to the ED today following unwitnessed fall at home. Per family patient was normal at breakfast but was later found to have fallen sometime during the morning. Exact mechanism unclear, patient does not recall any event due to baseline dementia. Uncertainty regarding head strike and unknown duration down. Noted to have a chin abrasion/laceration missing a portion of artificial front tooth, complaint of right elbow pain with swelling In the ED imaging revealed right supracondylar fracture of the distal humerus with associated soft tissue swelling and joint effusion. Head CT revealed an indeterminate 3 mm hyperdensity in the right centrum semiovale, which may represent calcification versus small traumatic intraparenchymal hemorrhage. Neurosurgery was consulted recommended repeat CT imaging in 8 hours for stability monitoring. Orthopedics reviewed elbow imaging and recommended posterior elbow splinting with outpatient follow-up Given the determinate head CT findings, dementia, unwitnessed fall, and need for repeat neuroimaging, the patient was admitted for observation. Hospital Course Hospital Course CT Head: My impression: Indeterminate 3 mm hyperdensity in right centrum semiovale; calcification versus small intracranial hemorrhage CT cervical spine: No fracture Right elbow x-ray: Supracondylar distal humerus fracture with displacement Forearm x-ray: Confirms supracondylar fracture A&P Assessment and plan 1. Unwitnessed fall: Plan: Unwitnessed fall with possible head injury ? Indeterminant head CT finding ? Neurosurgery consulted Right supracondylar humerus fracture Dementia Possible urinary tract infection Hypokalemia Hypertension Tobacco use disorder Repeat CT head in 8 to 24 hours ? Neurochecks Fall precautions Orthopedics following, consulted with posterior elbow splint placed. Nonweightbearing right upper extremity. Outpatient Ortho follow-up ? Baseline cognitive impairment so continue donepezil. Minimize sedation medications, delirium precautions ? UA mildly suspicious, patient terms no symptoms, does not endorse dysuria. Presumptive UTI treated with IV Rocephin in ED. Follow urine culture results ? Replace potassium, recheck labs in a.m. ? Continue home antihypertensives Repeat CT was done, which showed no new changes. Patient was discharged home in stable condition. Recommend follow-up with primary care for repeat CT head. Details below: CT HEAD TECHNIQUE: Noncontrast CT of the head obtained from the skullbase to the vertex. CLINICAL INFORMATION: f/u fall COMPARISON: 09/05/2025 DLP: 1041.[address] scans at [facility] use at least one of these dose optimization techniques: automated exposure control; mA and/or kV adjustment per patient size (includes targeted exams where dose is matched to clinical indication); or iterative reconstruction. FINDINGS: 3 mm punctate focus of increased attenuation in the RIGHT centrum semiovale is unchanged since yesterday. Recommend additional short interval follow-up to assess change Moderate small vessel changes with moderate parenchymal volume loss. Vascular calcification. Chronic appearing infarct RIGHT thalamus. Tiny small chronic lacunar infarct LEFT cerebellum Mild mucosal thickening in the mastoid tips. Trace fluid in the RIGHT sphenoid sinus. CT/CT head wo con* [id number] IMPRESSION: 1. Stable punctate focus of increased attenuation in the RIGHT centrum semiovale. This is indeterminate but unchanged. Recommend additional follow-up to assess change. 2. No other significant changes Physical Exam Narrative: General: Elderly female, awake, confused but cooperative, no acute distress HEENT: Chin abrasion; missing portion of artificial tooth Neck: Supple, no midline tenderness Cardiovascular: Regular rate and rhythm Respiratory: Clear to auscultation bilaterally Abdomen: Soft, nontender, nondistended Extremities: Right elbow with swelling and tenderness posterior splint in place. Distal neurovascular status tact Neurologic: Awake, oriented to self only. No focal neurological deficits Skin: No additional acute lesions Discharge Data Studies Completed and Pending Completed Studies During Hospitalization Category Date Time Status CT cervical spin wo con* [id number] Urgent Cat Scan 09/05/25 15:[address] elbow RT wo con* [id number] Stat Cat Scan 09/05/25 17:[address] head wo con* [id number] Stat Cat Scan 09/06/25 10:[address] head wo con* [id number] Urgent Cat Scan 09/05/25 15:10 Completed XR chest 1V portable [id number] Urgent Exams 09/05/25 15:10 Completed XR elbow RT min 3V* [id number] Stat Exams 09/05/25 15:10 Completed XR forearm RT 2V [id number] Stat Exams 09/05/25 15:10 Completed Pending at discharge Category Date Time Status Urine Culture Stat Lab 09/05/25 17:01 Received Radiology Impressions Cervical Spine CT 09/05/25 15:10 IMPRESSION: No fracture. Chest X-Ray 09/05/25 15:10 IMPRESSION: No acute findings. Elbow X-Ray 09/05/25 15:10 IMPRESSION: Significant soft tissue swelling surrounding the right elbow region. Indistinct fracture line in the intercondylar region is noted, consistent with supracondylar fracture with up to 14 mm bony displacement, best seen on lateral x-ray. Follow-up CT study is recommended for accurate evaluation. Large elbow joint effusion. Osteopenia. Forearm X-Ray 09/05/25 15:10 IMPRESSION: Transverse supracondylar fracture of the right humerus with extensive adjacent soft tissue swelling and some degree of bony impaction is noted. Osteopenia. The radius and ulnar are unremarkable. Elbow CT 09/05/25 17:18 IMPRESSION: Supracondylar oblique transverse fracture is noted with at least 3 small, 1 x 4 mm bone chips/fragments within the fracture line/joint space seen on image number 19 series number 8 and image number 30/8. There is 7 mm bony impaction in the radial aspect of the fracture line. There is up to 1.3 cm bony displacement in the ulnar aspect of the fracture line with the distal fragment displaced anteriorly seen on image number 13/8. There is extensive elbow joint effusion and extensive soft tissue edema/swelling of the adjacent muscle and subcutaneous soft tissue. Head CT 09/06/25 10:21 IMPRESSION: 1. Stable punctate focus of increased attenuation in the RIGHT centrum semiovale. This is indeterminate but unchanged. Recommend additional follow-up to assess change. 2. No other significant changes Laboratory Results WBC 9.03 10^3/uL (3.29-11.43) 09/06/25 04:42 RBC 3.79 10^6/uL (3.85-5.65) L 09/06/25 04:42 Hgb 12.00 g/dL (11.27-16.99) 09/06/25 04:42 Hct 36.6 % (36-47) 09/06/25 04:42 MCV 96.6 fl (85-98) 09/06/25 04:42 MCH 31.7 pg (27-33) 09/06/25 04:42 MCHC 32.8 g/dL (30-55) 09/06/25 04:42 RDW 13.4 % (12.1-15.1) 09/06/25 04:42 Plt Count 204 10^3/cmm (157-399) 09/06/25 04:42 MPV 10.1 fL (7.4-10.4) 09/06/25 04:42 Neut % (Auto) 72.5 % 09/06/25 04:42 Lymph % (Auto) 18.6 % 09/06/25 04:42 Parke % (Auto) 7.2 % 09/06/25 04:42 Eos % (Auto) 1.1 % 09/06/25 04:42 Baso % (Auto) 0.3 % 09/06/25 04:42 Neut # (Auto) 6.54 10^3/uL (1.8-7.7) 09/06/25 04:42 Lymph # (Auto) 1.7 10^3/uL (0.8-4.8) 09/06/25 04:42 Parke # (Auto) 0.7 10^3/uL (0.2-0.9) 09/06/25 04:42 Eos # (Auto) 0.1 10^3/uL (0.0-0.8) 09/06/25 04:42 Baso # (Auto) 0.0 10^3/uL (0.0-0.1) 09/06/25 04:42 Nucleated RBC % (auto) 0 % 09/06/25 04:42 Nucleated RBCs # 0.0 /100WBC 09/06/25 04:42 Sodium 136 mmol/L (136-145) 09/06/25 04:42 Potassium 3.3 mmol/L (3.5-5.1) L 09/06/25 04:42 Chloride 99 mmol/L (98-107) 09/06/25 04:42 Carbon Dioxide 27 mmol/L (22-29) 09/06/25 04:42 Anion Gap 13.3 (5-19) 09/06/25 04:42 BUN 7 mg/dL (8-23) L 09/06/25 04:42 Creatinine 0.8 mg/dL (0.5-0.9) 09/06/25 04:42 GFR Calculation Not Reportable 09/06/25 04:42 Glucose 165 mg/dL (65-115) H 09/06/25 04:42 Calculated Osmolality 284 mOsm/kg (285-295) L 09/06/25 04:42 Calcium 8.6 mg/dL (8.5-10.5) 09/06/25 04:42 Phosphorus 2.5 mg/dL (2.5-4.5) 09/06/25 04:42 Magnesium 1.6 mg/dL (1.7-2.3) L 09/06/25 04:42 Total Bilirubin 0.3 mg/dL (0.15-1.2) 09/06/25 04:42 AST 12 U/L (0-32) 09/06/25 04:42 ALT 9 U/L (0-33) 09/06/25 04:42 Alkaline Phosphatase 95 U/L (35-105) 09/06/25 04:42 Troponin T Baseline 19 ng/L (0-10) H 09/05/25 16:05 Troponin T 60 Minute 17.10 ng/L (0-10) H 09/05/25 17:23 Delta Troponin T -1.90 ABS# (0-10) L 09/05/25 17:23 Troponin T Hi Sens 6Hr 20.77 ng/L (0-10) H 09/05/25 22:04 Troponin T Hi Sens 6Hr Delta 1.77 ng/L (0-12) 09/05/25 22:04 Total Protein 5.5 g/dL (6.6-8.7) L 09/06/25 04:42 Albumin 3.1 g/dL (3.5-5.2) L 09/06/25 04:42 Globulin 2.4 g/dL (1.3-4.6) 09/06/25 04:42 Urine Color Yellow (Yellow) 09/05/25 17:01 Urine Appearance Turbid (CLEAR) A 09/05/25 17:01 Urine pH 6.0 (5-7) 09/05/25 17:01 Ur Specific [place] 1.010 (1.005-1.030) 09/05/25 17:01 Urine Protein 2+ (Negative) A 09/05/25 17:01 Urine Glucose (UA) Negative (Normal) 09/05/25 17:01 Urine Ketones Negative (Negative) 09/05/25 17:01 Urine Blood 2+ (Negative) A 09/05/25 17:01 Urine Nitrate Negative (Negative) 09/05/25 17:01 Urine Bilirubin Negative (Negative) 09/05/25 17:01 Urine Urobilinogen 0.2 mg/dL (Negative) 09/05/25 17:01 Ur Leukocyte Esterase 3+ (Negative) A 09/05/25 17:01 Urine RBC 0-2 /hpf (0-2) 09/05/25 17:01 Urine WBC >100 /hpf (0-5) H 09/05/25 17:01 Ur Squamous Epith Cells 0-5 /hpf (0-5) 09/05/25 17:01 Amorphous Sediment Not Reportable 09/05/25 17:01 Urine Bacteria 4+ /hpf (NONE) H 09/05/25 17:01 Hyaline Casts 9.30 /lpf 09/05/25 17:01 Vitals Last Vital Signs Temp 97.7 F 09/06/25 11:24 Pulse 81 09/06/25 11:24 Resp 16 09/06/25 11:24 BP 119/59 09/06/25 11:24 Pulse Ox 95 09/06/25 11:24 O2 Del Method Room Air 09/06/25 11:24 Discharge Plan Discharge Patient Disposition: Home Condition: Stable Prescriptions: Continued lisinopril 10 mg tablet 10 mg PO DAILY Qty: 90 3RF donepezil 10 mg tablet 10 mg PO DAILY Qty: 90 3RF citalopram 20 mg tablet 20 mg PO DAILY Qty: 90 3RF amlodipine 10 mg tablet See Rx Instructions .ROUTE .COMPLEX Qty: 90 3RF Dose Instruction: TAKE 1 TABLET BY MOUTH EVERY DAY AT NIGHT Rx Instructions: TAKE 1 TABLET BY MOUTH EVERY DAY AT NIGHT fluticasone propionate [Allergy Relief (fluticasone)] 50 mcg/actuation spray,suspension 1 spray intranasal BID Qty: 30 6RF Rx Instructions: administer into each nostril quetiapine 25 mg tablet 25 mg PO DAILY Qty: 30 2RF loratadine 10 mg tablet 10 mg PO DAILY Qty: 30 5RF clotrimazole [Athlete's Foot (clotrimazole)] 1 % cream 1 applic topical BID Qty: 30 6RF Discharge Order = DC NOW: Discharge Order (Routine); Ordered 09/06/25 Ordered By: Kishore Greco Referrals: Jose Rafael Castaneda DO [Physician, Orthopedics] - 09/07/25 8:45 am Wade Mcneil MD [Primary Care Provider, [facility]] - 09/17/25 10:15 am Discharge Diet: Usual diet Discharge Activity: Resume usual activity Patient Instructions: Opioid Safety, Patient Portal & Ward Instructions Discharge Attestations Time Spent in Discharge Care*: greater than 30 min Quality Metrics Clinical Quality Measures [ No reported AMI, CVA or VTE this stay] Coding Level of Care Code 53259 Diagnoses Unwitnessed fall R29.6
== END 2025-09-06 15:45 | disposition home or self-care (01) ==
LOC: ER 18:00 → ER IP 18:04 → MEDSURG 09-06 01:35
PROVIDERS: Admitting Provider Internal Medicine; Emergency Provider Physician Assistant; PCP Family Medicine; Visit Provider Internal Medicine
DX: R29.6 Repeated falls (principal); F03.90 Unspecified dementia, unspecified severity, without behavioral disturbance, psychotic disturbance, mood disturbance, and anxiety; I12.9 Hypertensive chronic kidney disease with stage 1 through stage 4 chronic kidney disease, or unspecified chronic kidney disease; N18.9 Chronic kidney disease, unspecified; F41.8 Other specified anxiety disorders; F17.210 Nicotine dependence, cigarettes, uncomplicated
CPT/HCPCS: 36415; 70450; 71045; 72125; 73080; 73090; 73200; 80053; 81001; 83735; 84100; 84484; 85025; 87086; 93005; 96374; 97161; 97165; 99285; G0378; J0696; J9999

== ENCOUNTER → 2025-09-07 08:35 | Outpatient (BNVA) | payer MEDICARE, OTHER, SELFPAY | PROVIDERS: PCP Family Medicine; Visit Provider Orthopaedic Surgery | DX: Z01.818 Encounter for other preprocedural examination (principal); S42.411A Displaced simple supracondylar fracture without intercondylar fracture of right humerus, initial encounter for closed fracture; W19.XXXA Unspecified fall, initial encounter; Z46.89 Encounter for fitting and adjustment of other specified devices | CPT/HCPCS: 36415; 73080; 80053; 81001; 85025; 99204 ==

== ENCOUNTER 2025-09-07 11:15 | Outpatient (CLI) | payer MEDICARE, OTHER, SELFPAY | END 2025-09-07 11:16 | disposition home or self-care (01) | LOC: SPT 11:16 | PROVIDERS: PCP Family Medicine; Visit Provider Orthopaedic Surgery | DX: Z46.89 Encounter for fitting and adjustment of other specified devices (principal); S42.411D Displaced simple supracondylar fracture without intercondylar fracture of right humerus, subsequent encounter for fracture with routine healing; X58.XXXD Exposure to other specified factors, subsequent encounter | CPT/HCPCS: L3761 ==

== ENCOUNTER 2025-09-08 11:24 | Day surgery (SDC) | payer MEDICARE, OTHER, SELFPAY ==
[2025-09-08] VITALS (16 sets, daily range): BP systolic 131–204; BP diastolic 62–83; PULSE 57–79; RESP 13–22; TEMP 36.2–37.1; O2SAT 91–100; BMI 15.4
[2025-09-08] MEDS: ceFAZolin 2,000 mg SDV 2000 MG IVP (12:51)
--- NOTE | 2025-09-08 12:53 | W.PM.OPSUD ---
Surgery/Procedure H&P Update DATE OF PROCEDURE: September 08, 2025 DATE H&P PERFORMED: 09/07/25 H&P UPDATE INFORMATION: I have reviewed H&P completed within last 30 days, I have examined patient prior to procedure and No changes to prior documentation PREOP DIAGNOSIS: Right supracondylar humerus fracture PLANNED PROCEDURE: Operation Date: 09/08/25 13:10 Proposed Procedures p ORIF Distal Humerus 97116(Right) - Jose Rafael Castaneda DO
--- NOTE | 2025-09-08 14:57 | PM.OP ---
Operative Report Date of procedure: September 08, 2025 Pre-op diagnosis: Right distal humerus fracture Post-op diagnosis: same Procedure done: Open reduction internal fixation of right distal humerus fracture Surgeon: Jose Rafael Castaneda DO Estimated blood loss (mL): 5 Procedure: Open reduction internal fixation of right distal humerus fracture Patient is brought to the operative suite placed in the lateral decubitus position with the right side up. All areas impingement well-padded. Patient's prepped and draped normal sterile fashion. Sterile tourniquets applied. Incision made posteriorly. The tricep tendon was identified the ulnar nerve was identified and a Huntington drain was placed around it. The lateral and medial gutters were open. Fracture is identified. Fracture is very distal. The medial side was reduced and bicjo-ih-ryyut reduction clamp was placed as well as the lateral side. A lag screw was placed from the medial fracture fragment into the shaft. This is a lag screw. Fracture was compressed. Attention was then brought to the lateral side. The fracture was too distal to get screws and on the lateral side however the plate was placed cortical screws placed proximally. And then 2 locking screws were placed from lateral to medial into the medial fragment. And then the medial plate was placed in I can only get 1 locking screw into the fragment medially. Then the shaft screws were finished with locking screws. AP lateral fluoroscopy ensured that the fracture and hardware in good position. Wounds were irrigated closed with Vicryl and nylon suture. Sterile dressings were applied patient was placed in a posterior splint and transferred to the PACU in stable condition.
[2025-09-08] MEDS: fentaNYL 50 mcg/mL INJ 2mL IVP (15:25)
[2025-09-08] MEDS: hyDRALAzine 20 mg/mL INJ 1 mL (15:44)
[2025-09-08] MEDS: HYDROcodone-acetaminophen 5-325 mg Tablet 1 TAB PO (16:41)
== END 2025-09-08 17:00 | disposition home or self-care (01) ==
PROVIDERS: PCP Family Medicine; Visit Provider Orthopaedic Surgery
PROC: (CPT 24586; principal; 2025-09-08 13:10)
DX: S42.401A Unspecified fracture of lower end of right humerus, initial encounter for closed fracture (principal); W19.XXXA Unspecified fall, initial encounter; I12.9 Hypertensive chronic kidney disease with stage 1 through stage 4 chronic kidney disease, or unspecified chronic kidney disease; N18.9 Chronic kidney disease, unspecified; F41.8 Other specified anxiety disorders
CPT/HCPCS: 24586; 73070; 76000; C1713; J0360; J0690; J1100; J2250; J2405; J2704; J3010; J3490; J7030; J9999